=== PATIENT | female | born 1990 | race Hispanic/Latino ===

== ENCOUNTER 2018-02-06 05:30 | Inpatient (IN) | payer OTHER ==
[2018-02-01] MEDS: Lactated Ringer's 1,000 ML IV SCH (05:41)
[2018-02-06] MEDS ORDERED: Ibuprofen 800 MG TAB PO PRN (07:36)
[2018-02-06] MEDS ORDERED: Methylergonovine 0.2 MG/ML VIAL IM PRN ×2 (07:36)
[2018-02-06] MEDS ORDERED: HYDROcodone/Acetaminophen 5/325 mg Tablet PO PRN (07:36)
[2018-02-06] MEDS ORDERED: Diphenoxylate HCl/Atropine Tablet PO PRN (07:36)
[2018-02-06] MEDS ORDERED: Promethazine HCl 25 MG/ML VIAL IM PRN ×2 (07:36→14:34)
[2018-02-06] MEDS ORDERED: Lidocaine 1% (PF) 30 ML VIAL SC PRN (07:36)
[2018-02-06] MEDS ORDERED: Misoprostol 200 MCG TAB PR PRN (07:36)
[2018-02-06] MEDS ORDERED: Acetaminophen 500 MG TAB PO PRN (07:36)
[2018-02-06] MEDS ORDERED: LR / Pitocin 40 units/1000 ml 1,000 ML IV PRN (07:36)
[2018-02-06] MEDS ORDERED: Carboprost 250 MCG/ML AMP IM PRN (07:36)
[2018-02-06] MEDS ORDERED: Ondansetron HCl/PF 4 MG/2 ML Vial IVP PRN ×2 (07:36→14:34)
[2018-02-06 07:56] VITALS: BMI 30.7
--- NOTE | 2018-02-06 08:02 | PDOC.LDHP ---
Labor and Delivery H&P Chief complaint: scheduled induction HPI: 27yo at 39w1d by LMP for elective IOL. No complaints. Current gestational age (weeks): 39 Due date: 02/14/18 Dating criteria: last menstrual period Grav: 3 Para: 1 Current complications: none Abnormal US findings: No Past Medical History: denies Current medications: pre-dewey vitamins Previous surgical history: none Allergies/Adverse Reactions: Allergies Allergy/AdvReac Type Severity Reaction Status Date / Time Sulfa (Sulfonamide Allergy Severe Hives Verified 02/06/18 07:44 Antibiotics) sulfamethoxazole Allergy Verified 02/23/17 01:56 [From Bactrim] trimethoprim [From Bactrim] Allergy Verified 02/23/17 01:56 Social history: none - Physical Exam Vital signs reviewed and normal: yes General: NAD Heart: RRR Lungs: CTAB Abdomen: gravid Extremeties: no edema FHT: category 1 [place] contractions every: 10min - Vaginal Exam cm dilated: 3 Effacement: 50% Station: -2 - OB Labs Blood type: A RH: positive Antibody Screen: negative HIV: negative RPR: negative HEPSAg: negative 1 hour GCT: negative GBS: negative Rubella: immune - Assessment L&D Assessment: elective induction at term - Plan Plan: admit to L&D, labor augmentation if indicated, informed consent obtained, anesthesia consult for pain management
[2018-02-06] MEDS: Lactated Ringer's 1,000 ML IV SCH ×3 (08:23→17:39)
[2018-02-06 08:41] LABS: Hemoglobin 12.3 g/dL (12.0-16.0); Mean Corpuscular HGB CONC 34.8 g/dL (32.0-36.0); Mean Corpuscular Hemoglobin 32.3 pg (27.0-31.0); Mean Corpuscular Volume 92.8 fl (81.0-99.0); Mean Platelet Volume 9.6 fL (7.4-10.4); Platelet Count 131 thou/uL (130-400); RBC Distribution Width 12.2 % (11.5-14.5); White Blood Cell (WBC) Count 6.9 thou/uL (4.8-10.8)
[2018-02-06] MEDS: LR 500 ML/Oxytocin 10 units 500 ML IV SCH ×2 (08:45→21:35)
[2018-02-06 09:17] LABS: HBSAg Index 0.18 S/CO (0-0.99); Hep B Surf Ag Non-Reactive S/CO (NonReactive)
[2018-02-06 09:22] LABS: Syphilis Antibody Nonreactive (Nonreactive); Syphilis Antibody Index 0.04 S/CO (<1.00 Non-Reactive)
[2018-02-06] MEDS ORDERED: Bupivacaine/Epinephrine 0.25% 30 ML VIAL ONE (11:11)
[2018-02-06] MEDS ORDERED: DISCONTINUE ALL PREVIOUS NARCOTICS FS SCH (12:30)
[2018-02-06] MEDS ORDERED: diphenhydrAMINE 25 MG CAP PO PRN (14:34)
[2018-02-06] MEDS ORDERED: Zolpidem Tartrate 5 MG TAB PO PRN (14:34)
[2018-02-06] MEDS ORDERED: diphenhydrAMINE 50 MG/ML VIAL IVP PRN (14:34)
[2018-02-06] MEDS ORDERED: Promethazine HCl 25 MG SUPP PR PRN (14:34)
[2018-02-06] MEDS ORDERED: diphenhydrAMINE 50 MG/ML VIAL IM PRN (14:34)
[2018-02-06] MEDS ORDERED: Eucerin (Mineral Oil/Petrolatum,White) 30 gm Jar TOP PRN (14:34)
[2018-02-06] MEDS ORDERED: Bupivacaine 0.25% 10 ML VIAL EPIDURAL PRN (14:34)
[2018-02-06] MEDS ORDERED: Naloxone HCl 0.4 mg/ml Vial IVP PRN ×2 (14:34)
[2018-02-06] MEDS ORDERED: Fentanyl 5 MCG/ 0.75% Bupivacaine 250 ML CADD EPIDURAL SCH (14:45)
[2018-02-06] MEDS ORDERED: Communication Order-Pharmacy FS SCH ×2 (14:45)
[2018-02-06] MEDS: Bupivacaine 0.5% 20 ML, fentaNYL Citrate/PF 400 MCG in Sodium Chloride 0.9% 72 ML EPIDURAL SCH ×2 (15:00→21:21)
[2018-02-06] MEDS ORDERED: Methylergonovine 0.2 MG/ML VIAL ONE ×2 (21:55)
[2018-02-06] MEDS ORDERED: Misoprostol 200 MCG TAB ONE (21:55)
--- NOTE | 2018-02-06 22:03 | PDOC.OPDEL ---
OB Operative/Delivery Note Delivery Dr/Surgeon: Eleonora Assist: n/a Pre-Delivery Diagnosis: elective induction Procedure/Post Delivery Dx: spontaneous vaginal delivery Weeks gestation: 39 Anesthesia: epidural - Findings A Sex: female Weight: 8 lb 8 oz - 1 min: 9 - 5 min: 9 - Additional Findings/Plan Placenta delivered: spontaneous Repaired Obstetrical Laceration: none Estimated blood loss: 400 Compilations/Other Findings: Uterine atony noted after delivery of placenta, resolved with pitocin, fundal massage. 800mcg cytotec placed pr. bilateral club feet noted. Post delivery plan: routine recovery
[2018-02-07] MEDS ORDERED: diphenhydrAMINE 25 MG CAP PO PRN (00:41)
[2018-02-07] MEDS ORDERED: Benzocaine/Menthol 20-0.5% 60 ML CAN TOP PRN (00:41)
[2018-02-07] MEDS ORDERED: Bisacodyl 10 MG SUPP PR PRN (00:41)
[2018-02-07] MEDS ORDERED: Preparation H Ointment 28 GM TUBE PR PRN (00:41)
[2018-02-07] MEDS ORDERED: Lanolin Ointment 7 GM TUBE TOP PRN (00:41)
[2018-02-07] MEDS ORDERED: Ondansetron HCl/PF 4 MG/2 ML Vial IVP PRN (00:41)
[2018-02-07] MEDS ORDERED: LR / Pitocin 40 units/1000 ml 1,000 ML IV SCH (00:41)
[2018-02-07] MEDS ORDERED: HYDROcodone/Acetaminophen 5/325 mg Tablet PO PRN ×2 (00:41)
[2018-02-07] MEDS ORDERED: Adacel (T-DAP) 0.5 ML VIAL IM ONE (00:41)
[2018-02-07] MEDS ORDERED: Milk Of Magnesia 30 ML UDCUP PO PRN (00:41)
[2018-02-07] MEDS: Ibuprofen 800 MG TAB PO SCH ×3 (05:40→21:33)
--- NOTE | 2018-02-07 07:36 | PDOC.PP ---
Post Progress Note Post Day #: 1 PO intake tolerated: yes Flatus: yes Ambulation: yes Vital Signs (12 hours) Temp Pulse Resp BP Pulse Ox 02/07/18 03:16 98.4 F 78 18 114/57 L 98 02/07/18 01:47 98.4 F 67 18 116/65 98 02/07/18 00:41 98.8 F 54 L 18 125/63 98 02/06/18 19:46 98.1 F 96 18 Weight Weight 179 lb - Physical Examination General: NAD Cardiovascular: RRR Respiratory: non-labored breathing Abdominal: no distention, appropriately TTP Fundus firm & at: umb Neurological: no gross focal deficits Psychiatric: normal affect Result Diagrams: 02/06/18 08:23 Additional Labs: Post Labs Hep Bs Antigen Non-Reactive S/CO (NonReactive) 02/06/18 08:23 (1) Term delivered Code(s): O80 - ENCOUNTER FOR FULL-TERM UNCOMPLICATED DELIVERY Status: Acute - Assessment/Plan PPD1 from [facility] Doing well , lochia < menses Rh pos RImm Cont PP care
[2018-02-07] MEDS: Prenatal Vitamin 1 TAB PO SCH (08:14)
[2018-02-07] MEDS: Ferrous Sulfate 325 MG TAB PO SCH ×2 (08:15→14:57)
[2018-02-07] MEDS: Docusate Calcium (SURFAK) 240 MG CAP PO SCH ×4 (08:15→21:34)
[2018-02-08] MEDS: Ibuprofen 800 MG TAB PO SCH (05:03)
[2018-02-08 08:10] VITALS: BP 127/58; TEMP 98
--- NOTE | 2018-02-08 08:12 | PDOC.PP ---
Post Progress Note Post Day #: 2 PO intake tolerated: yes Flatus: yes Ambulation: yes Vital Signs (12 hours) Temp Pulse Resp BP 02/08/18 08:09 98.0 F 60 20 127/58 L Weight Weight 179 lb - Physical Examination General: NAD Cardiovascular: RRR Respiratory: non-labored breathing Abdominal: no distention Fundus firm & at: umb-2 Skin: no rash Psychiatric: normal affect Result Diagrams: 02/06/18 08:23 Additional Labs: Post Labs Hep Bs Antigen Non-Reactive S/CO (NonReactive) 02/06/18 08:23 (1) Term delivered Code(s): O80 - ENCOUNTER FOR FULL-TERM UNCOMPLICATED DELIVERY Status: Acute - Assessment/Plan VSSAF PPD2 from [facility], no issues Rh pos RImm DC home FU 6 wks
[2018-02-08] MEDS: Prenatal Vitamin 1 TAB PO SCH (09:50)
[2018-02-08] MEDS: Docusate Calcium (SURFAK) 240 MG CAP PO SCH ×4 (09:50→09:51)
[2018-02-08] MEDS: Ferrous Sulfate 325 MG TAB PO SCH (09:50)
== END 2018-02-08 12:30 | disposition home or self-care (01) | DRG 775 ==
LOC: L&D 07:02 → 3SW 02-07 00:39
PROVIDERS: ADMIT Student in an Organized Health Care Education/Training Program; ATTEND Student in an Organized Health Care Education/Training Program
PROC: 10907ZC Drainage of Amniotic Fluid, Therapeutic from Products of Conception, Via Natural or Artificial Opening (ICD-10-PCS; principal; 2018-02-06)
PROC: 10E0XZZ Delivery of Products of Conception, External Approach (ICD-10-PCS; 2018-02-06)
DX: O75.89 Other specified complications of labor and delivery (principal); Z37.0 Single live birth
CPT/HCPCS: 51702; 85027; 86780; 87340; J0595; J2001; J2210; J2550; J3010; J3490; J7050; J7120